=== PATIENT | female | born 1995 | race Caucasian/White ===

== ENCOUNTER 2024-11-01 18:47 | Inpatient (IN) | payer OTHER, SELFPAY ==
[2024-11-01] VITALS (7 sets, daily range): BP systolic 108–160; BP diastolic 59–123; BMI 28.8; BMI 27.9
[2024-11-01 16:06] LABS: % Basophils 0.5 % (0-2); % Eosinophils 1.6 % (0-6); % Immature Granulocytes 0.2 % (0-0.5); % Lymphocytes 37.7 % (20.5-51.1); % Monocytes 4.2 % (1.7-9.3); % Neutrophils 55.8 % (42.2-75.2); Absolute Eosinophils 0.1 10^3/uL (0-0.7); Absolute Lymphocytes 3.3 10^3/uL (1.2-3.4); Absolute Monocytes 0.4 10^3/uL (0.1-0.6); Absolute Neutrophils 4.9 10^3/uL (1.4-6.5); Hematocrit 39.7 % (37.0-47.0); Hemoglobin 13.9 g/dL (12.0-16.0); Mean Corpuscular Volume 88.6 fL (81.0-99.0); Mean Platelet Volume 10.8 fL (7.4-10.4); Nucleated Red Blood Cells % 0 %; Platelet Count 315 10^3/uL (130-400); Red Blood Cell Count 4.48 10^6/uL (4.20-5.40); White Blood Cell Count 8.8 10^3/uL (4.8-10.8)
[2024-11-01 16:16] LABS: APTT 28.7 Sec (23.4-35.0)
[2024-11-01 16:22] LABS: ALT (SGPT) 26 U/L (0-35); AST (SGOT) 26 U/L (14-36); Albumin 4.9 g/dl (3.5-5.0); Alkaline Phosphatase 41 U/L (38-126); Blood Urea Nitrogen 18 mg/dl (7-17); Calcium 9.4 mg/dl (8.4-10.2); Carbon Dioxide 25 mmol/L (22-30); Chloride 108 mmol/L (98-107); Glucose 76 mg/dl (70-99); Potassium 4.5 mmol/L (3.5-5.1); Sodium 143 mmol/L (135-145); Total Bilirubin 1.5 mg/dl (0.2-1.3); Total Protein 7.4 g/dl (6.3-8.2); eGFR > 60.00
[2024-11-01 16:48] LABS: Troponin I < 0.012 ng/ml
--- NOTE | 2024-11-01 17:31 | CON.NEURO ---
Neuro Assessment/Plan
Assessment
29 year old woman, concern for multiple sclerosis given the patchy nature of symptoms, age, genetic risk
Plan
admit MRI w/o and w/ contrast
start Solumedrol 250 q6 tentatively 20 doses; this will speed up recovery but not change eventual outcoms
discussed with patient and father
Consultation
Order
Date of Consultation: 11/01/24
Requesting Provider: Stanislav Suarez Jr
Reason for Consult: slurred speech, leg numbness
Subjective/Objective
Subjective Data
Date of Service: November 01, 2024
29 year old right handed woman presenting with slurred speech, right leg tingling/numbness. Began 4 days ago while running she developed right leg numbness. Today ~noon with right leg tingling and slurred speech. Left leg pain.
carries genetic risk for multiple sclerosis, discovered when she attempted to donate eggs in college.
Objective Data
Vital Signs
Temp Pulse Resp BP Pulse Ox
36.7 C 62 16 128/89 100
11/01/24 15:38 11/01/24 17:08 11/01/24 17:00 11/01/24 16:47 11/01/24 17:08
Lab Results
11/01/24 15:48
11/01/24 15:48
APTT 28.7 Sec (23.4-35.0) 11/01/24 15:48
Sodium 143 mmol/L (135-145) 11/01/24 15:48
Potassium 4.5 mmol/L (3.5-5.1) 11/01/24 15:48
BUN 18 mg/dl (7-17) H 11/01/24 15:48
Glucose 76 mg/dl (70-99) 11/01/24 15:48
Calcium 9.4 mg/dl (8.4-10.2) 11/01/24 15:48
Patient Allergies
No Known Allergies Allergy (Unverified 11/01/24 15:38)
Physical Exam
-
AAOx3, language intact to naming, repetition, comprehension, mild dysarthria, stuttering
VFF, no red desaturation, EOMI, L NL flattening
trace LUE/LE weakness
sensation intact and symmetric to touch/pin/temp/vibration
DTR 2+ symmetric
finger to nose intact
Medications
-
Active Medications
Generic Name Dose Route Start Last Admin
Trade Name Freq PRN Reason Stop Dose Admin
Methylprednisolone Sodium Succinate 250 mg 11/01/24 17:30
Methylprednisolone Pf 125 Mg/2 Ml Vial IV 11/06/24 11:31
Q6H NIRMAL
--- NOTE | 2024-11-01 17:46 | ED.CVA ---
History of Present Illness
General
Chief Complaint: CVA/TIA Symptoms
Source: patient and family (Father)
Exam Limitations: none
Time Seen by Provider: 11/01/24 16:28
Nursing documentation reviewed up to this point in time: agreed with
Onset of Stroke Symptoms
Onset of symptoms known: Yes
Date of onset of symptoms: 11/01/24
History of Present Illness
History of Present Illness:
29-year-old female with a past medical history of asthma presents to the emergency room with her father for evaluation of speech difficulties. Patient reports that last week she noticed she was having some numbness in her right leg particularly
when she was running. She says that today while she was at work she noticed that she was having some numbness in both of her legs mostly in the thighs. At around 1 PM she also had acute onset of stuttering speech. She came to the emergency room
to be evaluated. She reports that she has been having headaches for the past few days. Last night she had some nausea/vomiting/diarrhea which seems to have improved today. She denies any neck pain or back pain. She denies any change in her
vision. She denies any weakness or numbness in the arms. She says that the numbness in the legs seems to actually have improved since arrival here in the emergency room, main issue now is with her speech. She has never had similar symptoms in the
past. She denies any history of seizures or migraines. Denies any other complaints.
Review of Systems
Review of Systems
All Other Systems: ROS reviewed and negative except as documented in HPI and ROS
Constitutional: Denies fever
Respiratory: Denies trouble breathing
Cardiac: Denies chest pain or palpitations
ABD/GI: Reports nausea, vomiting and diarrhea; Denies abdominal pain
: Reports bleeding (Currently on her menstrual period); Denies flank pain
Musculoskeletal: Denies neck pain or back pain
Neurological: Reports headache, weakness, numbness and other (Speech disturbance); Denies dizzy
Phy Exam
Physical Exam
Physical Exam:
General: Awake, alert, oriented x3; somewhat anxious
Head: Normocephalic, atraumatic
Eyes: Conjunctiva normal, EOMI, pupils equal round and reactive to light bilaterally
Throat: Airway intact, handling secretions
Neck: Trachea midline, supple without meningismus
Lungs: Clear to auscultation bilaterally, no wheezing, rales, rhonchi
Heart: Regular rate and rhythm, no murmurs, gallops, or rubs
Neuro: Patient has expressive aphasia, cranial nerves intact 2 through 12, motor and sensory appears to be intact and symmetric in all extremities; no limb ataxia
Skin: no rash
Extremities: No edema in extremities, equal pulses in all extremities
Scores
NIH Stroke Score
Level of Consciousness: 0 - Alert
LOC Questions: 0-Answers both correctly
LOC Commands: 0-Performs both correctly
Best Horizontal Gaze: 0-Normal
Visual Hdz: 0=Normal, no visual loss
Facial Palsy: 0=Normal, symmetrical
Motor - Right Arm: 0=No drift 10 seconds
Motor - Left Arm: 0=No drift 10 seconds
Motor - Right Le-No drift 5 seconds
Motor - Left Le-No drift 5 seconds
Limb Ataxia: 0-Absent
Sensation: 0-Normal
Best Language: 2-Severe aphasia
Dysarthria: 0-Normal
Extinction and Inattention: 0-No abnormality
NIH Total Score:: 2
Thrombolytic Contraindication
Inclusion and Exclusion criteria reviewed: Yes
Reasons for NON-Tx with Thrombolytics ABSOLUTE Exclusions: Greater than 4.5 hrs from onset of sxs (Numbness in the leg since this morning)
Heart Failure Risk
Heart Failure Risk Score: Not Applicable
Heart Score for Chest Pain Patients
STEMI patient?: Not applicable
Withdrawal Assessment of Alcohol
Withdrawal Assessment Completed?: Not applicable
Course
Orders/Labs/Results
Orders:
Orders
11/01/24 15:44
ECG [Electrocardiogram (*1)] Urgent
Reason for Study: Hypertension, Benign
EKG- Treatment ONCE
11/01/24 15:48
Complete Blood Count/With Diff Urgent
Comprehensive Metabolic Panel Urgent
PTT Urgent
Troponin I Urgent
11/01/24 16:28
CT Head & Neck Angio W/wo IV Urgent
Comment:
Reason For Exam: speech disturbance, leg weakness
11/01/24 17:30
MethylPREDNISolone PF [Solu-Medrol Pf] 250 mg IV Q6H
11/01/24 17:31
MR Brain W/o & With Contrast Routine
Comment:
Reason For Exam: multiple sclerosis
Recent pill cam endoscopy?: No
11/01/24 17:52
MethylPREDNISolone PF [Solu-Medrol Pf] 250 mg IV NOW STA
Abnormal Lab Results
11/01/24
15:48
MPV 10.8 H fL
(7.4-10.4)
Chloride 108 H mmol/L
(98-107)
BUN 18 H mg/dl
(7-17)
Total Bilirubin 1.5 H mg/dl
(0.2-1.3)
11/01/24 15:48
11/01/24 15:48
Vital Signs
Initial and Last Documented VS:
Initial Vital Signs
Temp Pulse Resp BP Pulse Ox
36.7 C 59 20 160/123 99
11/01/24 15:38 11/01/24 15:38 11/01/24 15:38 11/01/24 15:38 11/01/24 15:38
Last Documented Vital Signs
Temp Pulse Resp BP Pulse Ox
36.7 C 62 16 128/89 100
11/01/24 15:38 11/01/24 17:08 11/01/24 17:00 11/01/24 16:47 11/01/24 17:08
MDM/Problems Addressed
Differential Diagnosis Includes:
Complex migraine, seizure, MS, brain mass, stroke, Guillain-Miller�
MDM/Problems Addressed:
29-year-old female presents to the ER complaining of leg numbness and speech disturbance in the setting of recent headaches and some GI symptoms last night. Hypertensive on presentation which has normalized by my assessment. Rest of vitals normal.
Physical exam as above. Labs sent off including a CBC and a CMP which showed no clinically significant abnormalities. She was sent for a CTA head and neck which showed no acute abnormalities. EKG shows sinus rhythm. Case was discussed with
neurology�they felt MS is likely his diagnosis recommended treating with empiric steroids. Recommended admission for continued evaluation including MRI of the brain. At this point low clinical suspicion for stroke and with onset of numbness in her
legs this morning would be outside window for tenecteplase regardless. Case was discussed with hospitalist for admission.
Acute Exacerbation and/or Progression of Chronic Illness:
Acutely hypertensive resolved without intervention continue to monitor but no additional antihypertensives indicated
Acute Exacerbation and/or Progression of Chronic Illness: HTN
*Radiology
Radiology exam reviewed: radiology read reviewed
*Pulse Oximetry
Patient hypoxic: no
*EKG
Interpreted by ED Provider?: Yes
Heart Rate: 53
Rate: bradycardiac
Rhythm: sinus
Sebago: normal axis
Interval: normal interval
QRS Pattern: normal QRS
Ischemia: no ischemia
*Critical Care Note
Total Time (30-74mins, 75-104mins- exclusive of procedures): Not Applicable
Data Reviewed
Source: patient and family
Patient Management
Discussion with other providers: Hospitalist (Discussed with hospitalist) and Russian Language Instructor (Discussed with neurology)
Escalation/DeEscalation of care consider admission/obs:
Admission indicated
ED Attending Note
-
Portions of this chart may have been created with voice recognition software.� Occasional wrong word or��sound alike� substitutions may have occurred due to the inherent limitations of voice recognition software.
Discharge Plan
Departure
Patient Disposition: Admit
Date of Disposition: 11/01/24
Time of Disposition: 17:46
Admit to doctor: Laurence
Presentation/result/management discussed w/ accepting MD/DO: Hospitalist
Discharge Problem:
Expressive aphasia
Prescriptions:
No Action
ibuprofen [Motrin] 400 mg Tablet
600 mg PO DAILYPRN PRN (Reason: headache)
albuterol sulfate [ProAir HFA] 90 mcg/actuation Hfa Aerosol Inhaler
2 puff INHALATION R Q6HPRN PRN (Reason: sob)
Referrals:
Magdiel Kevin DO [Family Provider, Internal Medicine]
Interventions
Interventions:
*Risk Screen - Suicide Last Done: 11/01/24 16:47
*General Assessment Last Done: 11/01/24 15:38
*Neglect/Abuse Screening Last Done: 11/01/24 16:47
*ED- Fall Risk Assessment Last Done: 11/01/24 16:47
Discharge Date and Time
Print Language: [place]LAND[place]
[2024-11-01] MEDS: SOLU-MEDROL PF 250 MG IV ×2 (18:13→23:42)
--- NOTE | 2024-11-01 18:33 | HPS.HSE ---
Family Physician
-
Family Physician: Magdiel Kevin
Chief Complaint
-
Speech Difficulty
History of Present Illness
Patient is a 29 y/o female without significant past medical history who presents with speech difficulty. Patient reports she was on a run a few days ago when one her legs started to not feel normal. Earlier today she noted tingling in both of her
legs. Around 1PM today she developed difficulty with speech which continues during my evaluation. She is stuttering and having difficulty expressing herself.
Medical History
Past Medical History
Past Medical History: Reports None
Past Surgical History: Reports None
Social History
Tobacco: Non-smoker
Alcohol: Occasional
Family History
Family History: Other (Patient denies any family history of neurologic conditions, but notes during college she attempted to donate her eggs and tested positive for an MS gene)
Allergies / Home Medications
Allergies reflects when Allergies were last updated in [facility].
Home Medications with original date entered in [facility]
Allergy/Medication List:
Allergies
Allergy/AdvReac Type Severity Reaction Status Date / Time
No Known Allergies Allergy Unverified 11/01/24 15:38
Home Medications
albuterol sulfate 90 mcg/actuation aerosol inhaler 2 puff inhalation R Q6HPRN PRN sob 11/01/24
ibuprofen 400 mg tablet 600 mg PO DAILYPRN PRN headache 11/01/24
Review of Systems
-
A 12 point ROS was completed and negative except as noted: Yes
Constitutional: Denies Fever or Chills
Respiratory: Denies Cough or Trouble Breathing
Cardiac: Denies Chest Pain or Palpitations
Abdomen/GI: Reports Vomiting (Episode last night and this morning) and Diarrhea (One episode this morning)
Physical Exam
Vital Signs
Vital Signs
Temp Pulse Resp BP Pulse Ox
98.0 F 52 17 115/76 97
06/02/25 15:38 11/01/24 18:05 11/01/24 18:05 11/01/24 18:05 11/01/24 18:09
Physical Exam
General: Well Developed, No Apparent Distress and Comfortable
HEENT: NormoCephalic and Moist mucous membranes
Respiratory: Clear and Non Labored Respirations
Cardiac: S1/S2 and Regular Rhythm
GI: Soft and Non Tender
Rectal: Deferred by Provider
Musculoskeletal: No Clubbing, No Cyanosis and No Edema
Skin: Warm and Dry
Neuro: Awake, Alert, Oriented and Other (Dysarthria with significant stuttering)
Psych: Calm
Laboratory Results
-
11/01/24 15:48
11/01/24 15:48
Laboratory Results
APTT 28.7 Sec (23.4-35.0) 11/01/24 15:48
Total Bilirubin 1.5 mg/dl (0.2-1.3) H 11/01/24 15:48
AST 26 U/L (14-36) 11/01/24 15:48
ALT 26 U/L (0-35) 11/01/24 15:48
Alkaline Phosphatase 41 U/L (38-126) 11/01/24 15:48
Troponin I < 0.012 ng/ml 11/01/24 15:48
Data Reviewed
-
CT Scan: Report Reviewed by me
Lab Data: Labs Reviewed by me
Impression/Plan
-
Neurologic Symptoms concerning for Multiple Sclerosis
-Appreciate Neurology consult
-Continue methylprednisone
-Monitor neuro-checks
-Consult PT/OT and Speech
DVT proph: SCDs
Code Status: Full Code
[2024-11-01 18:55] LABS: HCG, Serum Qualitative Screen Negative
--- NOTE | 2024-11-01 19:01 | W.PN.UPDATE ---
Update Note
Progress Note Update
HPI: 29 y/o female without significant past medical history who presented with speech difficulty/stuttered speech. Patient reports she was on a run a few days ago when one her legs started to not feel normal. Earlier today she noted tingling in both
of her legs. Around 1PM today she developed difficulty with speech which continues during ED evaluation. She is stuttering and having difficulty expressing herself.
A/P:
# Neurologic Symptoms concerning for Multiple Sclerosis
Appreciate Neurology input
Continue methylprednisone
Monitor neuro-checks
Consult PT/OT and Speech
DVT proph: SCDs
Code Status: Full Code
--- NOTE | 2024-11-01 21:30 | PTCARENOTE ---
Rec'd to floor from ED awake & alert. Able to ambulate from stretcher to bed. Denied any dizziness or leg weakness. States that her legs are already better, denying numbness in thighs. Instructed to call for assist to get OOB through the night.
--- NOTE | 2024-11-01 23:00 | PTCARENOTE ---
States that speech is already improved; same noted by staff. Hesitancy in speech continues,but less than upon admission. States that she has no numbness or pain in thighs, but they are uncomfortable and she has feeling of need to stretch them.
[2024-11-01] MEDS: FLUSH (NSS) 2 FLUSH IV (23:42)
[2024-11-01] MEDS: TYLENOL 650 MG PO (23:57)
[2024-11-02 03:30] VITALS: BP 100/46
[2024-11-02] MEDS: SOLU-MEDROL PF 250 MG IV ×2 (05:22→11:35)
[2024-11-02 07:00] VITALS: BP 100/52
[2024-11-02 07:11] LABS: Amphetamines Negative (Negative); Barbiturates Negative (Negative); Benzodiazepines Negative (Negative); Buprenorphine Negative (Negative); Cocaine Negative (Negative); Marijuana Positive (Negative); Methadone Negative (Negative); Methamphetamines Negative (Negative); Opiates Negative (Negative); Phencyclidine Negative (Negative); Tricyclic Antidepressants Negative (Negative)
[2024-11-02 07:45] LABS: Hemoglobin 14.2 g/dL (12.0-16.0); Mean Corp Hgb Conc. 35.5 g/dL (33.0-37.0); Mean Corpuscular Hgb 31.1 pg (27.0-31.0); Mean Corpuscular Volume 87.7 fL (81.0-99.0); Mean Platelet Volume 11.5 fL (7.4-10.4); Platelet Count 289 10^3/uL (130-400); Red Blood Cell Count 4.56 10^6/uL (4.20-5.40); Red Cell Dist. Width 12.7 % (11.5-14.5); White Blood Cell Count 5.4 10^3/uL (4.8-10.8)
[2024-11-02 09:14] LABS: Blood Urea Nitrogen 18 mg/dl (7-17); Calcium 9.3 mg/dl (8.4-10.2); Carbon Dioxide 17 mmol/L (22-30); Chloride 111 mmol/L (98-107); Estimated Creatinine Clearance 122 ml/min; Glucose 127 mg/dl (70-99); Magnesium 1.8 mg/dl (1.6-2.3); Potassium 4.2 mmol/L (3.5-5.1); Sodium 141 mmol/L (135-145); eGFR > 60.00
[2024-11-02 09:25] LABS: Folate > 20.0 ng/ml (2.76-20); Vitamin B12 184 pg/ml (239-931)
--- NOTE | 2024-11-02 09:27 | W.PN.HOSP.TC ---
Addendum entered and electronically signed by Jonatan Avalos MD 11/02/24 17:58:
Discussed with neurology, who suspects patient's symptoms are secondary to her Chiari I malformation.
Patient has been cleared by neurology for discharge. Prescription has been provided for PT/OT/SPL.
Follow-up with her PCP in 1 week, and neurology in the office in 2-3 weeks.
Original Note:
Today's Communication/Plan
-
see bold
Assessment / Plan
Assessment / Plan
HPI: 29 y/o female without significant past medical history who presents with speech difficulty. Patient reports she was on a run a few days ago when one her legs started to not feel normal. Earlier today she noted tingling in both of her legs.
Around 1PM today she developed difficulty with speech which continues during my evaluation. She is stuttering and having difficulty expressing herself.
#Expressive aphasia concerning for multiple sclerosis
Brain MRI negative
SPL recommends outpatient therapy
PT/OT recommends outpatient therapy
Neurology following, will discuss with neurology regarding the results and what further workup is needed
DVT prophylaxis�SCDs
Full code
Updated mother at bedside 11/02
Total time spent to see the patient on the floor, examine the patient, review data and lab results, discuss treatment plan with patient, nursing staff around 35 minutes.
Physical Exam
General: No acute distress
HEENT: Normocephalic, Atraumatic, EOMI, MMM
Respiratory: Clear to Auscultation bilaterally
Cardiac: Normal S1/S2, Regular Rate and Rhythm
GI: Soft, Nontender, Nondistended, Normal Bowel Sounds
Extremities: No Clubbing, Cyanosis, or Edema
Neuro: Expressive aphasia with stuttering noted
Psych: Calm, Cooperative
Derm: No Visible lesions
Anticipated Discharge: 24 - 48 hours
Subjective/Interval History
-
Date of Service: November 02, 2024
Expressive aphasia improved. Denies weakness currently. Denies vision changes currently. No fever, no vomiting.
Objective Data
-
Labs:
Laboratory Results
11/02/24
06:45
WBC 5.4
Hgb 14.2
Hct 40.0
Plt Count 289
Sodium 141
Potassium 4.2
Chloride 111 H
Carbon Dioxide 17 L
BUN 18 H
Creatinine 0.7
Glucose 127 H
Calcium 9.3
Vital Signs:
Vital Signs
Temp Pulse Resp BP Pulse Ox
97.4 F 58 16 100/52 97
11/02/24 07:00 11/02/24 07:00 11/02/24 07:00 11/02/24 07:00 11/02/24 07:00
[2024-11-02 11:32] VITALS: BP 131/75; PULSE 68
[2024-11-02 15:00] VITALS: BP 104/55
--- NOTE | 2024-11-02 16:55 | CM ---
Alert awake oriented patient who
lives alone in an apartment with zero steps to enter. She is aphasic . She is independent in activates of daily living.She does drive .Her brother Dmitriy was visiting and Her mom is Ekta [phone]. Offered Vn she declined need
No VN in past . No SNF hx
Pharmacy [facility] [place]
PCP Dr Kevin
PLAN Home with no anticipated needs
--- NOTE | 2024-11-02 19:17 | W.PN.NEURO.1 ---
Today's Communication / Plan
-
d/c home
d/c steroids
Neuro Assessment/Plan
Assessment
brain MRI imgs rev'd, agree Chiari I malformation, 1 cm, minimally compressing posterior aspect of the cervicomedullary junction. 2mm T2/flair white mater lesion right frontal lobe, chronic and of no clinical significance as she does not have
epilepsy
29 year old woman, concern for multiple sclerosis which is ruled out.
Her symptoms could reasonably be attributed to Chiari malformation, though she is somewhat older than the average patient. the weakness/numbness could be due to compression at the decussation at the cervicomedullary junction.
discussed with her outpatient decompression skull surgery which I don't recommend presently based on apparent mild/improving symptoms but could be considered if symptoms worsen or speech/swallow symptoms persist
Plan
d/c home
d/c steroids
Subjective/Objective
Subjective Data
Date of Service: November 02, 2024
dysarthria improved. today dysphagia, feels something stuck in throat, not coughing when eating/drinking. left sided weakness, and right sided numbness essentially resolved. c/o pain right lateral thigh
Objective Data
Vital Signs
Temp Pulse Resp BP Pulse Ox
36.4 C 81 16 104/55 97
11/02/24 15:00 11/02/24 15:00 11/02/24 15:00 11/02/24 15:00 11/02/24 15:00
Lab Results
11/02/24 06:45
11/02/24 06:45
APTT 28.7 Sec (23.4-35.0) 11/01/24 15:48
Sodium 141 mmol/L (135-145) 11/02/24 06:45
Potassium 4.2 mmol/L (3.5-5.1) 11/02/24 06:45
BUN 18 mg/dl (7-17) H 11/02/24 06:45
Glucose 127 mg/dl (70-99) H 11/02/24 06:45
Calcium 9.3 mg/dl (8.4-10.2) 11/02/24 06:45
Vitamin B12 184 pg/ml (239-931) L 11/02/24 06:45
Ur Buprenorphine Negative (Negative) 11/02/24 06:09
Patient Allergies
sesame seed Allergy (Intermediate, Verified 11/02/24 01:30)
Hives
Physical Exam
-
AAOx3, mildly dysarthria
full strength
sensation intact to pin
== END 2024-11-02 18:10 | disposition home or self-care (01) | DRG 81 ==
LOC: 4 EAST ACU 18:47
PROVIDERS: Physician Assistant Medical; ADMITTING PHYSICIAN Internal Medicine; ATTENDING PHYSICIAN Family Medicine; CONSULT PHYSICIAN Psychiatry & Neurology Clinical Neurophysiology; EMERGENCY PHYSICIAN Emergency Medicine; FAMILY PHYSICIAN Internal Medicine
DX: G93.5 Compression of brain (principal); R47.01 Aphasia; J45.909 Unspecified asthma, uncomplicated
CPT/HCPCS: 70496; 70498; 70553; 80048; 80053; 80306; 82607; 82746; 83735; 84484; 84703; 85025; 85027; 85730; 93005; 96374; 97110; 97163; 97167; 99285; A9575; Q9967